=== PATIENT | male | born 1985 | race Hispanic/Latino ===

== ENCOUNTER 2021-02-23 01:19 | Emergency (ER) | payer SELFPAY | END 2021-02-23 02:02 | disposition home or self-care (01) | LOC: ERS 01:19 | DX: L03.213 Periorbital cellulitis (principal) | CPT/HCPCS: 99283 ==

== ENCOUNTER 2021-08-06 12:38 | Emergency (ER) | payer SELFPAY | END 2021-08-06 13:26 | disposition left against medical advice (07) | LOC: ERS 12:38 | DX: Z53.21 Procedure and treatment not carried out due to patient leaving prior to being seen by health care provider (principal) ==

== ENCOUNTER 2021-10-01 15:28 | Emergency (ER) | payer SELFPAY ==
[2021-10-01 22:51] LABS: SARS-CoV-2 PCR by NAA DETECTED (NotDetected)
== END 2021-10-01 16:40 | disposition home or self-care (01) ==
LOC: ERS 15:28
DX: U07.1 COVID-19 (principal); F17.210 Nicotine dependence, cigarettes, uncomplicated
CPT/HCPCS: 99283; U0003; U0005